=== PATIENT | male | born 1965 | race Caucasian/White ===

== ENCOUNTER 2023-04-25 14:44 | Emergency (ER) | payer OTHER ==
[~2023-04-25] VITALS: Ht 175.3 cm; Wt 81.6 kg
[2023-04-25 14:45] VITALS: BP_SYST 142; PULSE 108; RESP 18; TEMP 99.9; O2SAT 96
[2023-04-25] MEDS ORDERED: PRED20TA PO (15:32)
[2023-04-25] MEDS ORDERED: IBUP-1969 PO (15:32)
[2023-04-25] MEDS ORDERED: TRAM50TA2 PO (15:32)
[2023-04-25] MEDS ORDERED: ACYC-133 PO (15:32)
[2023-04-25] MEDS ORDERED: CEPH-548 PO (15:32)
[2023-04-25 16:04] VITALS: BP_SYST 122; PULSE 94; RESP 19; TEMP 98.4; O2SAT 97
== END 2023-04-25 16:04 | disposition home or self-care (01) ==
LOC: SED 14:44
DX: L03.221 Cellulitis of neck (principal); B02.9 Zoster without complications; R21 Rash and other nonspecific skin eruption; Z79.899 Other long term (current) drug therapy
CPT/HCPCS: 99283

== ENCOUNTER 2023-05-19 19:29 | Emergency (ER) | payer OTHER ==
[~2023-05-19] VITALS: Ht 175.3 cm; Wt 70.3 kg
[~2023-05-19 19:29] MED LIST: ACYC-133 PO; CEPH-548 PO; IBUP-1969 PO; PRED20TA PO; TRAM50TA2 PO
[2023-05-19 20:15] VITALS: BP_SYST 119; PULSE 82; RESP 18; TEMP 98.3; O2SAT 100
[2023-05-19] MEDS ORDERED: KETOROLAC TROMETHAMINE 60 MG/2 ML VIAL IM ONE (23:00)
[2023-05-19] MEDS ORDERED: TRAM50TA2 PO (23:46)
[2023-05-19] MEDS ORDERED: NEU300 PO (23:46)
[2023-05-19 23:50] VITALS: BP_SYST 119; PULSE 82; RESP 18; TEMP 98.3; O2SAT 100
== END 2023-05-19 23:50 | disposition home or self-care (01) ==
LOC: SED 19:29
DX: B02.29 Other postherpetic nervous system involvement (principal); R51.9 Headache, unspecified; Z79.899 Other long term (current) drug therapy
CPT/HCPCS: 99285; 70450; 70490; 76376; 96372; J1885